=== PATIENT | male | born 1955 | race Caucasian/White ===

== ENCOUNTER → 2017-10-09 10:43 | Outpatient (POV) | payer BC, SELFPAY | PROVIDERS: Family Provider Family Medicine; Visit Provider Dermatology | DX: Z00.00 Encounter for general adult medical examination without abnormal findings (principal) ==

== ENCOUNTER 2018-07-15 14:34 | Observation (INO) ==
--- NOTE | 2018-07-15 14:48 | Emergency Department Note ---
ED Disposition Clinical Impression: Acute appendicitis Qualifiers: Acute appendicitis type: with localized peritonitis Appendicitis gangrene presence: without gangrene Appendicitis perforation presence: without perforation Appendicitis abscess presence: without abscess Qualified Code(s): K35.30 - Acute appendicitis with localized peritonitis, without perforation or gangrene Disposition: Still a Patient Condition on Discharge: Good Referrals: Cathleen Campos MD [Primary Care Provider] - - Critical Care Critical Care Time: No Attestation: On 07/15/18, the high probability of a clinically significant, sudden or life threatening deterioration of the following system(s) required my full and direct attention, intervention and personal management. The time I documented below is in addition to time spent performing reported procedures but includes the following listed in this critical care notation. Medical Decision Making - Robert Inquiry Pt receiving controlled substance: No Vital Signs: 07/15/18 14:38 07/15/18 14:51 07/15/18 16:01 Temperature 98.7 F 98.7 F Temperature Source Oral Oral Pulse Rate [Right Brachial] 86 86 72 Respiratory Rate 18 18 Blood Pressure [Right Arm] 114/71 114/71 135/71 Blood Pressure Mean [Right Arm] 85 85 92 Blood Pressure Source [Right Arm] Automatic Cuff Automatic Cuff Automatic Cuff Blood Pressure Position [Right Arm] Sitting Sitting Sitting 02 Sat by Pulse Oximetry 98 98 98 Oxygen Delivery Method Room Air Room Air Room Air - Lab Data Lab Results 07/15/18 14:50: WBC 14.6 H, RBC 5.05, Hgb 16.5, Hct 47.9, MCV 94.8 H, MCH 32.6 H , MCHC 34.4, RDW 13.0, Plt Count 294, MPV 7.1 L, Neut % (Auto) 86.4 H, Lymph % (Auto) 7.7 L, [place] % (Auto) 3.5, Eos % (Auto) 2.1, Baso % (Auto) 0.3, Neut # (Auto) 12.6 H, Lymph # (Auto) 1.1, [place] # (Auto) 0.5, Eos # (Auto) 0.3, Baso # (Auto) 0.0, Total Counted 100, Neutrophils % (Manual) 91 H, Lymphocytes % (Manual) 6 L, Monocytes % (Manual) 3, Platelet Estimate Normal 07/15/18 14:50: Sodium 137, Potassium 4.0, Chloride 98, Carbon Dioxide 29, Anion Gap 14.0, BUN 16, Creatinine 1.19, Estimated Creat Clear 103, Estimated GFR 61, Est GFR ( Amer) 74, Glucose 97, Calcium 10.1, Total Bilirubin 0.7, AST 25, ALT 30, Alkaline Phosphatase 88, Total Protein 8.6 H, Albumin 4.3, Globulin 4.3 H, Albumin/Globulin Ratio 1.0 L, Lipase 120 07/15/18 16:35: Urine Color Yellow, Urine Appearance Sl cloudy, Urine pH 6.0, Ur Specific [place] 1.010, Urine Protein Negative, Urine Glucose (UA) Negative, Urine Ketones Negative, Urine Blood Negative, Urine Nitrate Negative, Urine Bilirubin Negative, Urine Urobilinogen 0.2, Ur Leukocyte Esterase Negative, Urine RBC None, Urine WBC Occasional, Ur Squamous Epith Cells Occasional, Urine Bacteria Trace Result diagrams: 07/15/18 14:50 07/15/18 14:50 Orders (Tests/Meds): ED MEDICATIONS Generic Name Dose Route Start Last Admin Trade Name Bertha PRN Reason Stop Dose Admin Sodium Chloride 10 ml 07/15/18 15:48 07/15/18 15:51 Rad-Saline Flush 10ml Syringe IV 08/14/18 15:47 10 ml NEEDED PRN Administration Maintain IV Site Discontinued Medications Generic Name Dose Route Start Last Admin Trade Name Freq PRN Reason Stop Dose Admin Iopamidol 75 ml 07/15/18 15:48 07/15/18 15:51 [id number]; 75ml Vial IV 07/15/18 15:49 75 ml ONCE ONE Administration Protocol Sodium Chloride 1,000 ml 07/15/18 14:59 07/15/18 15:35 Sod Chlor 0.9% 1000ml Bag IV 07/15/18 15:00 1,000 ml BOLUS ONE Administration ORDERS Category Date Time Status UA [Urinalysis and Microscopic] Stat Lab 07/15/18 16:35 Ordered - CT Data CT Scan: Abdomen, Pelvis Time Received: 16:[address] Reviewed: Yes: I discussed the CT results w/the radiologist Findings Narrative: Acute appendicitis without perforation or abscess - ECG Data Tracing #1 EKG interpreted by Osvaldo Mccarthy MD: Rhythm: Ventricular paced rhythm Rate: 73 No evidence of acute ischemia or injury - Physician Consults Physician Consulted: Allran Time: 16:35 Reason -: Surgical Eval/Care Comment/Response: Have supervisor feed house call in OR crew and he will come in to see the patient General Adult HPI - General Chief complaint: Abdominal Pain Stated complaint: stomach pain Time Seen by Provider: 07/15/18 14:47 Mode of Arrival: Wheelchair Limitations: No Limitations Description of Symptoms (Recalled from ER Triage Doc. by RN): Pt c/o RLQ pain that began approx 0530 this morning. Pt describes pain as a dull ache that worsens when pressure is applied to area. Pt denies n/v/d, fever or urinary symptoms - History of Present Illness HPI narrative: Right lower quadrant pain since about 5 AM. Mild constipation. Otherwise no symptoms, no vomiting or diarrhea, no urinary symptoms, no fever. Seen by his primary care provider, Dr. campos, and suspected to have appendicitis. She sent in here for imaging, she has notified Dr. Steel of possible appendicitis. The patient has had no prior abdominal surgeries. - Related Data Home Medications Medication Instructions Recorded Confirmed lisinopril 20 mg tablet 20 mg PO ONCE 10/17/17 07/15/18 temazepam 30 mg capsule 30 mg PO QHS 10/17/17 07/15/18 triamterene 37.5 1 tab PO QAM 10/17/17 07/15/18 mg-hydrochlorothiazide 25 mg tablet minocycline 100 mg capsule 100 mg PO BID cap 11/06/17 07/15/18 Allergies Allergy/AdvReac Type Severity Reaction Status Date / Time No Known Allergies Allergy Verified 07/15/18 14:47 [facility] History I have reviewed the patient's past medical history: Yes Medical History: Reports:: Hypertension, Internal Pacemaker Denies:: Diabetes Mellitus Type 1, Diabetes Mellitus Type 2 Other Surgeries: Yes: Colonoscopy, Pacemaker Amputation: Yes (2 toes) - Social History Smoking Status: Never smoker Tobacco Type: smokeless tobacco Alcohol Intake: never Alcohol Intake Frequency:: holidays/special occasions only - Psychiatric History Expresses thoughts of harming self/others: None Suicide Plan Description: No Plan Family Hx:: Cancer ROS Obtained: Yes All systems reviewed & no additional complaints - Constitutional Constitutional: Denies fever(s) - Cardiovascular Cardiovascular: Denies chest pain - Gastrointestinal Gastrointestingal: Reports: abdominal pain, constipation. Denies: diarrhea, nausea, vomiting - Genitourinary Male Genitourinary: Denies difficulty urinating, Denies flank pain - Musculoskeletal Musculoskeletal: Denies back pain Physical Exam - General General appearance: alert, in no apparent distress - Head Head exam: atraumatic, normocephalic, normal inspection - Eye Eye exam: Present: normal appearance, PERRL, EOMI - ENT ENT exam: Present: mucous membranes moist - Neck Neck exam: Present: normal inspection, trachea midline - Chest Chest inspection: Present: normal inspection, symmetric chest wall rise - Respiratory Respiratory exam: Present: normal lung sounds bilaterally. Absent: respiratory distress - Cardiovascular Cardiovascular exam: Present: regular rate, normal rhythm. Absent: JVD - Abdominal Exam Abdominal exam: Present: soft, tenderness, guarding, normal bowel sounds, t enderness at [place]. Absent: distention Abdominal tenderness: Present: RLQ - Extremities Exam Extremities exam: Present: normal inspection - Neurological Exam Neurological exam: Present: alert - Psychiatric Psychiatric exam: Present: normal affect, normal mood - Skin Skin exam: Present: warm, dry, intact, normal color
[2018-07-15 15:02] LABS: Basophils % 0.3 % (0.1-2.0); Eosinophils # 0.3 K/mm3 (0.0-0.4); Eosinophils % 2.1 % (0.1-12.0); Hematocrit 47.9 % (42.0-52.0); Hemoglobin 16.5 g/dL (14.1-18.0); Lymphocytes # 1.1 K/mm3 (0.7-4.5); Lymphocytes % 7.7 % (10-50); Mean Corpuscular HGB Conc 34.4 g/dL (31.8-35.4); Mean Corpuscular Hemoglobin 32.6 pg (27.0-31.2); Mean Corpuscular Volume 94.8 fl (80-94); Mean Platelet Volume 7.1 fl (7.4-10.4); Monocytes # 0.5 K/mm3 (0.1-1.0); Monocytes % 3.5 % (1.7-9.3); Neutrophils # 12.6 K/mm3 (1.8-7.8); Neutrophils % 86.4 % (37.0-80.0); Platelet Count 294 K/mm3 (142-424); Red Blood Count 5.05 M/mm3 (4.60-6.20); White Blood Count 14.6 K/mm3 (4.8-10.8)
[2018-07-15 15:15] LABS: Albumin Level 4.3 gm/dL (3.4-5.0); Bilirubin,Total 0.7 mg/dL (0.2-1.0); Calcium 10.1 mg/dL (8.5-10.1); Globulin 4.3 gm/dl (1.3-3.2); Total Protein,Serum 8.6 gm/dL (6.4-8.2)
[2018-07-15 15:48] LABS: Lymphocytes % 6 % (10-50); Monocytes % 3 % (2-9); Neutrophils % 91 % (42-76); Total Cells Counted 100
[2018-07-15 16:42] LABS: Microscopic, Urine URINE MICROSCOPIC (MICROSCOPIC)
[2018-07-15 16:44] LABS: Appearance,Urine SL CLOUDY (Clear); Bilirubin,Urine Negative (Negative); Blood, Urine Negative (Negative); Color,Urine YELLOW (Yellow); Glucose,Urine (UA) Negative (Negative); Ketones,Urine Negative (Negative); Leukocyte Esterase,Urine Negative (Negative); Protein,Urine Negative (Negative); Urobilinogen,Urine 0.2 EU/dl (0.2)
[2018-07-15 16:57] LABS: Squamous Epithelial Cell,Urine Occasional #/hpf (0-5); WBC,Urine Occasional #/hpf (0-3)
[2018-07-15 16:58] LABS: Bacteria,Urine Trace /lpf
--- NOTE | 2018-07-15 17:23 | History & Physical Report ---
HPI HPI: Abdominal pain Patient is a 63-year-old white male. Apparently he awoke this morning approximately 5:30 AM with sudden onset of significant pain and tenderness in the right lower quadrant. He was seen and evaluated in his primary care provider's office. Appendicitis was suspected. He was sent to the emergency department where he was found to have a leukocytosis. CT scan revealed findings of acute appendicitis and surgical consultation was obtained. [facility] History Medical History: Reports:: Hypertension, Internal Pacemaker Denies:: Diabetes Mellitus Type 1, Diabetes Mellitus Type 2, Seizures Other Medical History: Denies: Blood Transfusion Reaction Other Surgeries: Yes: Colonoscopy, Pacemaker Amputation: Yes (2 toes) - *Social History Smoking Status: Never smoker Tobacco Type: smokeless tobacco Alcohol Intake: never Alcohol Intake Frequency:: holidays/special occasions only - Psychiatric History Expresses thoughts of harming self/others: None Suicide Plan Description: No Plan *Family Hx:: Cancer Review of Systems - Review of Systems Review of systems:: pertinent systems reviewed and negative unless documented below - Constitutional Reports anorexia - Eyes Denies blind spots - ENT Denies abnormal hearing - *Cardiovascular Denies chest pain - *Respiratory Denies shortness of breath - *Gastrointestinal Reports abdominal pain - *Genitourinary Denies difficulty urinating Meds Home Medications Medication Instructions Recorded Confirmed Type lisinopril 20 mg tablet 20 mg PO ONCE 10/17/17 07/15/18 History temazepam 30 mg capsule 30 mg PO QHS 10/17/17 07/15/18 History triamterene 37.5 1 tab PO QAM 10/17/17 07/15/18 History mg-hydrochlorothiazide 25 mg tablet minocycline 100 mg capsule 100 mg PO BID cap 11/06/17 07/15/18 History Allergies Allergy/AdvReac Type Severity Reaction Status Date / Time No Known Allergies Allergy Verified 07/15/18 14:47 Exam Vital signs and Labs for Last 24 Hours: Temp Pulse Resp BP Pulse Ox 98.7 F 72 18 135/71 98 07/15/18 14:51 07/15/18 16:01 07/15/18 16:01 07/15/18 16:01 07/15/18 16:01 Laboratory Results - last 24 hr 07/15/18 14:50: WBC 14.6 H, RBC 5.05, Hgb 16.5, Hct 47.9, MCV 94.8 H, MCH 32.6 H , MCHC 34.4, RDW 13.0, Plt Count 294, MPV 7.1 L, Neut % (Auto) 86.4 H, Lymph % (Auto) 7.7 L, [place] % (Auto) 3.5, Eos % (Auto) 2.1, Baso % (Auto) 0.3, Neut # (Auto) 12.6 H, Lymph # (Auto) 1.1, [place] # (Auto) 0.5, Eos # (Auto) 0.3, Baso # (Auto) 0.0, Total Counted 100, Neutrophils % (Manual) 91 H, Lymphocytes % (Manual) 6 L, Monocytes % (Manual) 3, Platelet Estimate Normal 07/15/18 14:50: Sodium 137, Potassium 4.0, Chloride 98, Carbon Dioxide 29, Anion Gap 14.0, BUN 16, Creatinine 1.19, Estimated Creat Clear 103, Estimated GFR 61, Est GFR ( Amer) 74, Glucose 97, Calcium 10.1, Total Bilirubin 0.7, AST 25, ALT 30, Alkaline Phosphatase 88, Total Protein 8.6 H, Albumin 4.3, Globulin 4.3 H, Albumin/Globulin Ratio 1.0 L, Lipase 120 07/15/18 16:35: Urine Color Yellow, Urine Appearance Sl cloudy, Urine pH 6.0, Ur Specific [place] 1.010, Urine Protein Negative, Urine Glucose (UA) Negative, Urine Ketones Negative, Urine Blood Negative, Urine Nitrate Negative, Urine Bilirubin Negative, Urine Urobilinogen 0.2, Ur Leukocyte Esterase Negative, Urine RBC None, Urine WBC Occasional, Ur Squamous Epith Cells Occasional, Urine Bacteria Trace I & O for Last 24 hours: Intake & Output 07/13/18 07/14/18 07/15/18 07/16/18 11:59 11:59 11:59 11:59 Weight 260 lb - Constitutional no acute distress - *Routine HEENT Exam Head: Present: normocephalic - *Routine Respiratory Exam Present: CTA bilaterally - *Routine Cardiovascular Exam Present: RRR - *Routine Abdominal Exam Present: soft, tenderness, rebound, guarding Comments: Patient's abdomen is soft. He has tenderness with focal guarding in the right lower quadrant. Results - Results Lab Results Last 24 Hours:: Laboratory Results - last 24 hr 07/15/18 14:50: WBC 14.6 H, RBC 5.05, Hgb 16.5, Hct 47.9, MCV 94.8 H, MCH 32.6 H , MCHC 34.4, RDW 13.0, Plt Count 294, MPV 7.1 L, Neut % (Auto) 86.4 H, Lymph % (Auto) 7.7 L, [place] % (Auto) 3.5, Eos % (Auto) 2.1, Baso % (Auto) 0.3, Neut # (Auto) 12.6 H, Lymph # (Auto) 1.1, [place] # (Auto) 0.5, Eos # (Auto) 0.3, Baso # (Auto) 0.0, Total Counted 100, Neutrophils % (Manual) 91 H, Lymphocytes % (Manual) 6 L, Monocytes % (Manual) 3, Platelet Estimate Normal 07/15/18 14:50: Sodium 137, Potassium 4.0, Chloride 98, Carbon Dioxide 29, Anion Gap 14.0, BUN 16, Creatinine 1.19, Estimated Creat Clear 103, Estimated GFR 61, Est GFR ( Amer) 74, Glucose 97, Calcium 10.1, Total Bilirubin 0.7, AST 25 , ALT 30, Alkaline Phosphatase 88, Total Protein 8.6 H, Albumin 4.3, Globulin 4.3 H, Albumin/Globulin Ratio 1.0 L, Lipase 120 07/15/18 16:35: Urine Color Yellow, Urine Appearance Sl cloudy, Urine pH 6.0, Ur Specific [place] 1.010, Urine Protein Negative, Urine Glucose (UA) Negative, Urine Ketones Negative, Urine Blood Negative, Urine Nitrate Negative, Urine Bilirubin Negative, Urine Urobilinogen 0.2, Ur Leukocyte Esterase Negative, Urine RBC None, Urine WBC Occasional, Ur Squamous Epith Cells Occasional, Urine Bacteria Trace Assessment and Plan - Assessment and plan all Dx Assessment and Plan for all problems:: Plan will be for laparoscopic with possibly open appendectomy with planned admission. I explained the details of the procedure along with the associated risks. He understands and agrees to proceed.
--- NOTE | 2018-07-15 18:56 | Operative Note ---
Date of procedure: 07/15/18 Pre-op Diagnosis:: Acute appendicitis Post-op Diagnosis:: Same Procedure performed:: Laparoscopic appendectomy Surgeon:: David Steel MD SOIL CONSERVATION TEACHER:: Lorenzo Kenyon Anesthesia: HENRY Estimated blood loss (mL): 20 Clinical Note:: Patient is a 63-year-old white male. He had reportedly developed abdominal pain localized to the right lower quadrant early this morning which awoke him from sleep. It was quite severe. He presented to his primary care provider's office and appendicitis was suspected. He was sent to the emergency department where he underwent workup which revealed a leukocytosis and CT scan revealing findings of acute appendicitis. Surgical consultation was obtained and arrangements were made for appendectomy. Operative findings:: He had a significantly inflamed suppurative appendicitis. He did have some significant fatty infiltration of the liver. Operative note:: Consent was obtained and patient was taken to the operating room. He was positioned in a supine position. General anesthesia was induced via endotracheal tube. His abdomen was prepped and draped in the standard surgical fashion. Please note that he had a Vazquez catheter placed for bladder decompression. Subumbilical skin incision was made and while performing abdominal wall lift Veress needle was inserted. CO2 pneumoperitoneum was achieved 15 mmHg. A 12 mm optical trocar was inserted at the umbilicus. Intraperitoneal contents were visualized. There was some turbid fluid in the right lower quadrant. He was positioned in left side down. 5 mm trocar was inserted in the suprapubic location. 5 mm trocar was inserted in the right upper abdomen. 30 degree 5 mm laparoscope was inserted through the right upper abdominal trocar site. The appendix was identified and found to be markedly inflamed and suppurative. There was thick purulent exudate on the appendix. It was somewhat adherent to the ileum and also to the right lateral sidewall. Peritoneal attachments laterally were incised with Brett ultrasonic harmonic sharyn. Appendix was grasped and retracted anteriorly. Mesoappendix was divided with Brett ultrasonic harmonic sharyn with care taken to coagulate the appendiceal artery in the process. Appendix was dissected down to its base where it was divided with a PATRIZIA linear cutting stapling device. Appendix was placed within an Endo Catch retrieval device and removed from the peritoneal cavity via the umbilical trocar site. Limited irrigation was performed of the pericecal region, pelvis, and perihepatic region. There was good hemostasis. Trochars were removed as CO2 pneumoperitoneum was evacuated. Fascia at the umbilicus was closed with a 0 Vicryl [id number] suture. Local anesthetic was infiltrated. Skin incisions were closed with 4-0 Monocryl in a subcuticular fashion. Steri-strips and dressings were applied. Condition: stable Disposition: PACU Specimens:: Appendix Complications:: None immediately apparent
--- NOTE | 2018-07-15 19:06 | Progress Note ---
[facility] Anesthesia Checklist - Patient Identification Patient Identification: Arm Band, Verbal (Name & ) - Structural Data Admitted From: Emergency Dept Planned Operative Procedure/s: lap appy - NPO Status Verified Time NPO: 00:00 - Additional verifications Patient : No Anesthesia Reactions: No Hx Blood Transfusions: No Blood Transfusion Reaction: No Cephalosporin Allergy: No Previous Colonoscopy: Yes - Cardiovascular Assessment Heart Sounds: S1 & S2 Pulse Strength: Baseline Pulse Rhythm: Regular Peripheral Edema: No - Airway Assessment C-Spine Mobility Assessed: Yes TMJ Mobility Assessed: Yes Dentition: Good Dentition - Neurological Assessment Level of Consciousness: Awake, Alert, Appropriate Hx Seizures: No Numbness or tingling in extremities: No - Anesthesia Plan Anesthesia Risk discussed: Yes ASA Class: III Anesthesia Type: General [facility] History I have reviewed the patient's past medical history: Yes Medical History: Reports:: Hypertension, Internal Pacemaker Denies:: Diabetes Mellitus Type 1, Diabetes Mellitus Type 2, Seizures Other Medical History: Denies: Blood Transfusion Reaction Other Surgeries: Yes: Colonoscopy, Pacemaker Amputation: Yes (2 toes) - *Social History Smoking Status: Never smoker Tobacco Type: smokeless tobacco Alcohol Intake: never Alcohol Intake Frequency:: holidays/special occasions only - Psychiatric History Expresses thoughts of harming self/others: None Suicide Plan Description: No Plan *Family Hx:: Cancer
--- NOTE | 2018-07-15 19:08 | Progress Note ---
[facility] Anesthesia Record Part II Discharge Time: 19:33 Destination: Medical Surgical Department PACU nurse assessment reviewed?: Yes Patient Condition:: Good Anesthesia Complications:: None
--- NOTE | 2018-07-15 19:08 | Progress Note ---
[facility] Anesthesia Record Part I Intake, IV Amount: 1,000 Estimated blood loss (mL): 10 Urine output (mL): 300 Blood Products used (#): none Blood Pressure: 135/70 SaO2: 95 Pulse Rate: 75 Respiratory Rate: 20 Temperature: 98.1 F Patient is:: Awake, Stable Stable to PACU at:: 19:03
[2018-07-16 06:21] LABS: Basophils % 0.1 % (0.1-2.0)
[2018-07-16 06:28] LABS: Eosinophils % 0.2 % (0.1-12.0); Hematocrit 39.4 % (42.0-52.0); Lymphocytes # 0.9 K/mm3 (0.7-4.5); Lymphocytes % 8.6 % (10-50); Mean Corpuscular HGB Conc 33.9 g/dL (31.8-35.4); Mean Corpuscular Hemoglobin 32.4 pg (27.0-31.2); Mean Corpuscular Volume 95.4 fl (80-94); Mean Platelet Volume 7.1 fl (7.4-10.4); Monocytes # 0.5 K/mm3 (0.1-1.0); Monocytes % 4.5 % (1.7-9.3); Neutrophils # 9.2 K/mm3 (1.8-7.8); Neutrophils % 86.6 % (37.0-80.0); Platelet Count 247 K/mm3 (142-424); Red Blood Count 4.13 M/mm3 (4.60-6.20); Red Cell Distribution Width 13.1 % (11.5-17.5); White Blood Count 10.6 K/mm3 (4.8-10.8)
[2018-07-16 06:31] LABS: Hemoglobin 13.4 g/dL (14.1-18.0)
--- NOTE | 2018-07-16 07:54 | Pharmacy Consult Notes ---
[facility] Pharmacy VTE Monitoring - Patient Demographics Admission date: 07/16/18 Report Date: 07/16/18 Time: 07:53 Allergies/Adverse Reactions: Patient Allergies No Known Allergies Allergy (Verified 07/15/18 14:47) Height: 1.88 m Weight: 117.112 kg Patient Problems: Current Active Problems Acute appendicitis (Acute) - VTE Risk Labs: VTE Related Lab Results Hgb 13.4 g/dL (14.1-18.0) L D 07/16/18 06:02 Hct 39.4 % (42.0-52.0) L 07/16/18 06:02 Plt Count 247 K/mm3 (142-424) 07/16/18 06:02 BUN 16 mg/dL (7-18) 07/15/18 14:50 Creatinine 1.19 mg/dL (0.70-1.30) 07/15/18 14:50 Estimated Creat Clear 103 mL/min (0-300) 07/15/18 14:50 Was VTE Risk Assessment Performed: No VTE Score: 3 VTE Risk Level: Low Risk Clinical Trial Participant: No - Prophylaxis VTE Prophylaxis Ordered?: Yes Types of VTE Prophylaxis: TEDS Knee High Location of Applied Device: Bilateral Lower Extremeties
--- NOTE | 2018-07-16 07:56 | Progress Note ---
Subjective Patient reports: feels better Narrative: Tolerating full liquid diet. Exam Vital signs and Labs for Last 24 Hours: Temp Pulse Resp BP Pulse Ox 98.5 F 70 16 119/64 96 07/16/18 02:20 07/16/18 04:00 07/16/18 02:20 07/16/18 02:20 07/16/18 02:20 Laboratory Results - last 24 hr 07/15/18 14:50: WBC 14.6 H, RBC 5.05, Hgb 16.5, Hct 47.9, MCV 94.8 H, MCH 32.6 H , MCHC 34.4, RDW 13.0, Plt Count 294, MPV 7.1 L, Neut % (Auto) 86.4 H, Lymph % (Auto) 7.7 L, [place] % (Auto) 3.5, Eos % (Auto) 2.1, Baso % (Auto) 0.3, Neut # (Auto) 12.6 H, Lymph # (Auto) 1.1, [place] # (Auto) 0.5, Eos # (Auto) 0.3, Baso # (Auto) 0.0, Total Counted 100, Neutrophils % (Manual) 91 H, Lymphocytes % (Manual) 6 L, Monocytes % (Manual) 3, Platelet Estimate Normal 07/15/18 14:50: Sodium 137, Potassium 4.0, Chloride 98, Carbon Dioxide 29, Anion Gap 14.0, BUN 16, Creatinine 1.19, Estimated Creat Clear 103, Estimated GFR 61, Est GFR ( Amer) 74, Glucose 97, Calcium 10.1, Total Bilirubin 0.7, AST 25, ALT 30, Alkaline Phosphatase 88, Total Protein 8.6 H, Albumin 4.3, Globulin 4.3 H, Albumin/Globulin Ratio 1.0 L, Lipase 120 07/15/18 16:35: Urine Color Yellow, Urine Appearance Sl cloudy, Urine pH 6.0, Ur Specific [place] 1.010, Urine Protein Negative, Urine Glucose (UA) Negative, Urine Ketones Negative, Urine Blood Negative, Urine Nitrate Negative, Urine Bilirubin Negative, Urine Urobilinogen 0.2, Ur Leukocyte Esterase Negative, Urine RBC None, Urine WBC Occasional, Ur Squamous Epith Cells Occasional, Urine Bacteria Trace 07/15/18 17:55: Urine Color Yellow, Urine Appearance Clear, Urine pH 5.5, Ur Specific [place] 1.015, Urine Protein Negative, Urine Glucose (UA) Negative, Urine Ketones Negative, Urine Blood Negative, Urine Nitrate Negative, Urine Bilirubin Negative, Urine Urobilinogen 0.2, Ur Leukocyte Esterase Negative, Urine WBC Occasional, Urine Bacteria Trace 07/16/18 06:02: WBC 10.6 D, RBC 4.13 L, Hgb 13.4 L D, Hct 39.4 L, MCV 95.4 H, MCH 32.4 H, MCHC 33.9, RDW 13.1, Plt Count 247, MPV 7.1 L, Neut % (Auto) 86.6 H, Lymph % (Auto) 8.6 L, [place] % (Auto) 4.5, Eos % (Auto) 0.2, Baso % (Auto) 0.1, Neut # (Auto) 9.2 H, Lymph # (Auto) 0.9, [place] # (Auto) 0.5, Eos # (Auto) 0.0, Baso # (Auto) 0.0 I & O for Last 24 hours: Intake & Output 07/13/18 07/14/18 07/15/18 07/16/18 11:59 11:59 11:59 11:59 Intake Total 2518 / 2518 Output Total 1150 / 1150 Balance 1368 / 1368 Weight 258 lb 3 oz - Constitutional no acute distress - *Routine Abdominal Exam Present: soft. Absent: tenderness Progress Note: A&P Assessment and Plan for All Diagnoses:: Plan to discharge home.
--- NOTE | 2018-07-16 08:01 | Discharge Summary ---
General - General Admission date:: 07/15/18 Discharge date: 07/16/18 HPI HPI: Patient is a 63-year-old white male. Apparently he awoke this morning approximately 5:30 AM with sudden onset of significant pain and tenderness in the right lower quadrant. He was seen and evaluated in his primary care provider's office. Appendicitis was suspected. He was sent to the emergency department where he was found to have a leukocytosis. CT scan revealed findings of acute appendicitis and surgical consultation was obtained. Hospital Course Hospital Course: Patient was taken to the operating room at which time he underwent successful laparoscopic appendectomy. He was found to have an acutely inflamed suppurative appendicitis without perforation. Please see operative dictation for complete details. Patient was continued on perioperative Zosyn overnight. He was given a full liquid diet. Following morning he was tolerating this without difficulty. His white blood cell count had normalized. He felt quite well and much better. He remained afebrile. Arrangements were made for discharge home on postoperative day #1. Objective Vital signs: Temp Pulse Resp BP Pulse Ox 98.5 F 70 16 119/64 96 07/16/18 02:20 07/16/18 04:00 07/16/18 02:20 07/16/18 02:20 07/16/18 02:20 Results Labs on day of discharge: Labs from last 24 hours 07/16/18 07/15/18 07/15/18 06:02 17:55 16:35 WBC 10.6 D RBC 4.13 L Hgb 13.4 L D Hct 39.4 L MCV 95.4 H MCH 32.4 H MCHC 33.9 RDW 13.1 Plt Count 247 MPV 7.1 L Neut % (Auto) 86.6 H Lymph % (Auto) 8.6 L [place] % (Auto) 4.5 Eos % (Auto) 0.2 Baso % (Auto) 0.1 Neut # (Auto) 9.2 H Lymph # (Auto) 0.9 Berks # (Auto) 0.5 Eos # (Auto) 0.0 Baso # (Auto) 0.0 Total Counted Neutrophils % (Manual) Lymphocytes % (Manual) Monocytes % (Manual) Platelet Estimate Sodium Potassium Chloride Carbon Dioxide Anion Gap BUN Creatinine Estimated Creat Clear Estimated GFR Est GFR ( Amer) Glucose Calcium Total Bilirubin AST ALT Alkaline Phosphatase Total Protein Albumin Globulin Albumin/Globulin Ratio Lipase Urine Color Yellow Yellow Urine Appearance Clear Sl cloudy Urine pH 5.5 6.0 Ur Specific [place] 1.015 1.010 Urine Protein Negative Negative Urine Glucose (UA) Negative Negative Urine Ketones Negative Negative Urine Blood Negative Negative Urine Nitrate Negative Negative Urine Bilirubin Negative Negative Urine Urobilinogen 0.2 0.2 Ur Leukocyte Esterase Negative Negative Urine RBC None Urine WBC Occasional Occasional Ur Squamous Epith Cells Occasional Urine Bacteria Trace Trace 07/15/18 07/15/18 14:50 14:50 WBC 14.6 H RBC 5.05 Hgb 16.5 Hct 47.9 MCV 94.8 H MCH 32.6 H MCHC 34.4 RDW 13.0 Plt Count 294 MPV 7.1 L Neut % (Auto) 86.4 H Lymph % (Auto) 7.7 L [place] % (Auto) 3.5 Eos % (Auto) 2.1 Baso % (Auto) 0.3 Neut # (Auto) 12.6 H Lymph # (Auto) 1.1 [place] # (Auto) 0.5 Eos # (Auto) 0.3 Baso # (Auto) 0.0 Total Counted 100 Neutrophils % (Manual) 91 H Lymphocytes % (Manual) 6 L Monocytes % (Manual) 3 Platelet Estimate Normal Sodium 137 Potassium 4.0 Chloride 98 Carbon Dioxide 29 Anion Gap 14.0 BUN 16 Creatinine 1.19 Estimated Creat Clear 103 Estimated GFR 61 Est GFR ( Amer) 74 Glucose 97 Calcium 10.1 Total Bilirubin 0.7 AST 25 ALT 30 Alkaline Phosphatase 88 Total Protein 8.6 H Albumin 4.3 Globulin 4.3 H Albumin/Globulin Ratio 1.0 L Lipase 120 Urine Color Urine Appearance Urine pH Ur Specific [place] Urine Protein Urine Glucose (UA) Urine Ketones Urine Blood Urine Nitrate Urine Bilirubin Urine Urobilinogen Ur Leukocyte Esterase Urine RBC Urine WBC Ur Squamous Epith Cells Urine Bacteria Discharge Plan - Patient Discharge Instructions ACTIVITY: No heavy lifting DIET: advance to your usual diet - Follow up Plan Follow up with: Cathleen Hu MD [Primary Care Provider] - David Steel MD [Staff Physician] - 2 weeks Disposition: Home, Self-Group Home Medications: Home Medications Medication Instructions Recorded Confirmed Type lisinopril 20 mg tablet 20 mg PO DAILY 10/17/17 07/16/18 History temazepam 30 mg capsule 30 mg PO HS 10/17/17 07/16/18 History triamterene 37.5 1 tab PO DAILY 10/17/17 07/16/18 History mg-hydrochlorothiazide 25 mg tablet Doxycycline Hyclate [Doxycycline 20 mg PO BID 07/16/18 07/16/18 History 20mg Tablet] Prescriptions/Medication Reconciliation: Continue lisinopril 20 mg tablet 20 mg PO DAILY temazepam 30 mg capsule 30 mg PO HS triamterene 37.5 mg-hydrochlorothiazide 25 mg tablet 1 tab PO DAILY Doxycycline Hyclate [Doxycycline 20mg Tablet] 20 mg PO BID
[2018-07-16 09:08] LABS: Lymphocytes % 11 % (10-50); Monocytes % 2 % (2-9); Neutrophils % 84 % (42-76); Total Cells Counted 100
[2018-07-16 09:09] LABS: RBC Morphology Normal
== END 2018-07-16 08:37 | disposition home or self-care (01) ==
LOC: ER 14:34 → SDC 17:38 → 2ND 17:38
PROVIDERS: ADMIT Surgery; ATTEND Surgery

== ENCOUNTER → 2018-09-29 10:54 | Outpatient (POV) | payer MEDICARE, SELFPAY | PROVIDERS: Visit Provider Dermatology | DX: Z00.00 Encounter for general adult medical examination without abnormal findings (principal) ==

== ENCOUNTER → 2018-11-10 08:49 | Outpatient (POV) | payer MEDICARE, SELFPAY | PROVIDERS: Visit Provider Dermatology | DX: Z00.00 Encounter for general adult medical examination without abnormal findings (principal) ==

== ENCOUNTER → 2018-11-16 12:37 | Outpatient (CLI) | payer MEDICARE, SELFPAY ==
--- NOTE | 2018-11-16 12:41 | CA_ITS ---
PROCEDURE: 2-D M-mode and color Doppler study INDICATIONS FOR THE TEST: Chest pain COPD Heart Murmur Tobacco Smoking+ Palpitations Fatigue Syncope Edema Hypertension+Diabetes Mellitus Rheumatic Fever SOB BOONE Obesity Hyperlipidemia+ Family History HD Additional History PACER PATIENT INFORMATION HEIGHT: 74 WEIGHT:267 GENDER: Male B/P:128/79 2-D/M-MODE INTERPRETATION: 2-D MEASUREMENTS OBSERVED VALUES IN CMS Right Ventricular Dimension (RVDd) 2.5 Interventricular Septum (Thickness)(IVsd) 1.7 Left Ventricular Internal Dimensions(LVIDd) 5.3 Left Ventricular Posterior Wall (Thickness)(LVPWd) 1.2 Aortic Root 3.6 Aortic Cusp Separation 2.1 Left Atrial Dimensions (LAD) 3.9 2D 1. Left atrium is mildly enlarged, left ventricle is normal size, mild concentric left ventricular hypertrophy, visually estimated ejection fraction 55% with no regional wall motion abnormality, there is abnormal septal motion. 2. The right atrium and right ventricle are mildly enlarged with normal contractility. There is pacemaker lead seen right atrium and right ventricle. 3. The aortic valve is thickened and calcified, leaflet continue to display mobility. 4. The mitral valve has mitral annular calcification, there is no mitral stenosis 5. The tricuspid valve is grossly normal. 6. The pulmonic valve is poorly present. 7. No significant pericardial effusion noted. DOPPLER INTERROGATION: Doppler interrogation of the aortic, mitral and tricuspid valvular presence of mild mitral and tricuspid regurgitation, tricuspid regurgitation jet velocity is inadequate for calculation of the right ventricular systolic pressure, grade 1 diastolic dysfunction seen with tissue Doppler evidence of raised left atrial pressure. CONCLUSION: 1. Mildly enlarged left atrium, normal left ventricular size, mild concentric left ventricular hypertrophy, visually estimated ejection fraction 55% with no regional wall motion abnormality, there is abnormal septal motion. Grade 1 diastolic dysfunction seen with tissue Doppler evidence of raised left atrial pressure. 2. Mildly enlarged right ventricle with normal contractility. 3. Mild mitral and tricuspid regurgitation 4. No significant pericardial effusion noted.
== END ==
PROVIDERS: PCP Family Medicine; Visit Provider Internal Medicine
DX: I25.10 Atherosclerotic heart disease of native coronary artery without angina pectoris (principal)
CPT/HCPCS: 93306

== ENCOUNTER → 2018-12-14 13:57 | Outpatient (CLI) | payer MEDICARE, SELFPAY | PROVIDERS: PCP Family Medicine; Visit Provider Nurse Practitioner Family | DX: G47.33 Obstructive sleep apnea (adult) (pediatric); G47.9 Sleep disorder, unspecified; R06.83 Snoring; R40.0 Somnolence | CPT/HCPCS: G0399 ==

== ENCOUNTER → 2019-03-05 10:14 | Outpatient (CLI) | payer MEDICARE, SELFPAY | PROVIDERS: Visit Provider Specialist | DX: G47.33 Obstructive sleep apnea (adult) (pediatric) (principal) | CPT/HCPCS: 94762 ==

== ENCOUNTER → 2021-03-20 09:15 | Outpatient (POV) | payer MEDICARE, SELFPAY | PROVIDERS: Visit Provider Dermatology | DX: Z00.00 Encounter for general adult medical examination without abnormal findings (principal) ==

== ENCOUNTER → 2021-10-02 08:53 | Outpatient (POV) | payer MEDICARE, SELFPAY | PROVIDERS: Visit Provider Dermatology | DX: Z00.00 Encounter for general adult medical examination without abnormal findings (principal) ==

== ENCOUNTER → 2022-04-18 08:41 | Outpatient (CLI) | payer MEDICARE, SELFPAY ==
--- NOTE | 2022-04-18 08:45 | US_ITS ---
FINAL REPORT CLINICAL HISTORY: AAA FINDINGS: Limited sonographic images were obtained of the abdomen to evaluate the abdominal aorta and iliac arteries. The abdominal aorta measures up to 2.1 cm in greatest dimension. The iliac arteries are within normal limits. IMPRESSION: No evidence of abdominal aortic aneurysm. Reviewed, Interpreted and Dictated by David Luna III, MD Transcribed by Sharon Gaitan Authenticated and [facility]
== END ==
PROVIDERS: PCP Family Medicine; Visit Provider Family Medicine
DX: Z13.6 Encounter for screening for cardiovascular disorders (principal)
CPT/HCPCS: 76705

== ENCOUNTER → 2022-10-31 13:14 | Outpatient (CLI) | payer MEDICARE, SELFPAY ==
--- NOTE | 2022-10-31 13:20 | CA_ITS ---
APPROVED REPORT EXAM: Comprehensive 2D, Doppler, and color-flow Echocardiogram Agile Coach: SEGUN White, RVS Ht: 6 ft 2 in Wt: 257lbs BSA: 2.42 BP: 126/68 mmHg Indications: Evaluation of LVF prior to Pacemaker battery replacement, HTN, HLD, Etoh use 2D Dimensions IVSd 1.26 cm LVEF (Visual) 79.80 % PWd 1.18 cm LA Volume 70.70 mL LVDd 4.14 cm LA Volume Index 28.50 mL/m2 (M/F) 16-34 LVDs 2.15 cm Aortic Root 3.43 cm Left Atrium 3.37 cm LVOT 1.99 cm (M/F) 1.5-2.5 M-Mode Dimensions LA Diam 4.04 cm (1.9-4.0) LVDd 4.58 cm (3.5-5.7) Ao Diam 4.04 cm (2.0-3.7) LVDs 2.77 cm (3.5-5.7) EF (Teich) 70.10% EPSs 0.32 cm FS 39.50% EDV (Teich) 96.30 mL TAPSE 2.85 (<1.7) ESV (Teich) 28.80 mL LV Diastology E Decel Time 227.00 (160-240 msec) E/A Ratio 0.75 MED E' 4.90 (< 7 cm/sec) MED A' 16.60 cm/s E'/MED E' Ratio 24.06 (>14) LAT E' 5.30 (<10 cm/sec) LAT A' 14.00 cm/s E/LAT E' Ratio 22.25 (>14) Aortic Valve LVOT Max 119.00 (70-110 cm/s) LVOT VTI 24.09 cm AoV Peak Geronimo. 200.00 (50-130 cm/s) AO Peak GR. 16.00 mmHg AO Mean GR. 9.10 (<5 mmHg) AO VTI 38.28 (18-25 cm) GRACIELA (VTI) 1.96 (2.5-4.5 cm2) Mitral Valve MV A Velocity 158.00 (40-130 cm/s) E/A Ratio 0.75 MV Decel. Time 227.00 (160-240 ms) MV Mean Gr. 4.20 (<2mmHg) MV PHT 67.00 ms Pulmonary Valve PV Peak Velocity 137.00 (50-150 cm/s) Tricuspid Valve TR P. Velocity 171.00 cm/s RAP Estimate 10.00 mmHg RVSP 21.70 mmHg Left Ventricle Left atrium is mildly enlarged, left ventricle is normal size mild concentric left ventricular hypertrophy, estimated ejection fraction 55% with no regional wall motion abnormality, grade 1 diastolic dysfunction seen with tissue Doppler evidence of late left atrial pressure. Right Ventricle Right atrium and right ventricular mildly enlarged with normal contractility, there is pacemaker leads in the right ventricle. Aortic Valve Aortic valve is thickened and calcified without Doppler evidence of aortic stenosis or aortic insufficiency. Mitral Valve Mitral valve has mitral annular calcification which extends in the posterior mitral leaflet, there is no significant mitral stenosis, there is trace mitral regurgitation. Tricuspid Valve Tricuspid valve grossly normal, there is trace tricuspid regurgitation, tricuspid regurgitation (inadequate for calculation of the right ventricular systolic pressure. Pulmonic Valve Pulmonic valve is poorly visualized. Great Vessels Aortic root is normal size. Inferior vena cava is normal size with normal inspiratory collapse. Pericardium No significant pericardial effusion noted. There is anterior echo-free space seen. Conclusion 1. Mild biatrial enlargement, normal left ventricular size, mild concentric left ventricular hypertrophy, estimated ejection fraction 55% with no regional wall motion abnormality, grade 1 diastolic dysfunction seen with tissue Doppler evidence of raise left atrial pressure. 2. Mildly enlarged right ventricle with normal contractility, pacemaker leads in the right atrium and right ventricle. 3. Thickened and calcified aortic valve without Doppler evidence of aortic stenosis or aortic insufficiency. 4. Trace mitral and tricuspid regurgitation. 5. No significant pericardial effusion noted. 6. Inferior vena cava is normal size with normal inspiratory collapse.
== END ==
PROVIDERS: PCP Family Medicine; Visit Provider Nurse Practitioner
DX: I47.1 Supraventricular tachycardia (principal)
CPT/HCPCS: 93306

== ENCOUNTER 2022-11-06 08:57 | Day surgery (SDC) | payer MEDICARE, SELFPAY ==
[2022-11-06] VITALS (7 sets, daily range): BP systolic 93–123; BP diastolic 45–60; PULSE 66–73; RESP 17–18; O2SAT 95–98; BMI 33.0
--- NOTE | 2022-11-06 07:15 | IR_ITS ---
APPROVED REPORT Patient Location: Outpatient Nub Card Tender: MATILDA Jackson RT (R) PROCEDURES 1. Pocket Revision 2. Removal of old Pacemaker 3. Capping of chronic atrial lead 4. Placement of an atrial sensing and pacing coil into the right atrial appendage. 5. Implant of Permanent Pacemaker INDICATION End of battery life Informed consent was obtained prior to the procedure. COMPLICATIONS None Estimated Blood Loss: Less than 10 ML TECHNIQUE 1% lidocaine with epinephrine used to anesthetize the left anterior aspect of the chest. Scalpel was used to make the initial cutaneous incision and then used to dissect down to the existing pacemaker generator. The generator was removed from the existing pocket. Digital manipulation was required along with intermittent usage of scalpel in order to revise the pocket. The leads were removed from the old generator.The chronic right atrial lead was capped. The patient was then placed in Trendelenburg position and the subclavian vein was accessed once via the Selinger technique, there is one wire in the vein. A 6 Filipino sheath was placed under fluoroscopic guidance into the subclavian vein over the wire. The dilator was removed from the sheath. Using fluoroscopic guidance, the atrial lead was the placed into the right atrial appendage and screwed and secured in place. The new generator was screwed to the existing ventricular lead and the new atrial lead and secured into place. Electronic interrogation proved acceptable thresholds and voltage within the lead. Antibiotics were used to flush the pocket and the pacemaker was secured using 3-0 silk into the newly revised pocket. Monocryl was used to close the subcutaneous tissue and then lamar were placed on the cutaneous area in order to approximate the incision. Patient was transferred to the postop holding area in stable condition. INTERROGATION Generator Model number: L311: ACCOLADE MRI DR IS-1 Generator Serial number: [id number] Atrial lead model number: [id number] Atrial lead serial number: [id number] P-wave: 2.5 MV Impedence: 552 OHMS Threshold: 1.4V @ 0.4 MS Right Ventricular lead model number: 2088 TC Right Ventricular lead serial number: [id number] R-wave: 0.0 MV Impedence: 5245 OHMS Threshold: 1.5V @ 0.4 MS Pacing Parameters: Mode: DDDR Base/Max Track:60 ppm / 130 ppm No diaphragmatic stimulation at 10 volts. IMPRESSION 1. Successful Pocket Revision 2. Successful Removal of old Pacemaker 3. Successful Implant of Permanent Pacemaker 4. Succesful Placement of an atrial sensing and pacing coil into the right atrial appendage. 5. Succesful Implant of Permanent Pacemaker PLAN 1. Post Op Wound Care. Electronically signed by : Matt Dunlap MD 11/08/2022 13:39:33
[2022-11-06 09:42] LABS: Basophils # 0.1 K/mm3 (0-0.2); Eosinophils # 0.4 K/mm3 (0.0-0.4); Eosinophils % 5.7 % (0.1-12.0); Hematocrit 45.1 % (42.0-52.0); Lymphocytes # 1.3 K/mm3 (0.7-4.5); Lymphocytes % 17.1 % (10-50); Mean Corpuscular HGB Conc 33.4 g/dL (31.8-35.4); Mean Corpuscular Hemoglobin 32.2 pg (27.0-31.2); Mean Corpuscular Volume 96.6 fl (80-94); Mean Platelet Volume 8.3 fl (7.4-10.4); Monocytes # 0.4 K/mm3 (0.1-1.0); Monocytes % 5.2 % (1.7-9.3); Neutrophils # 5.3 K/mm3 (1.8-7.8); Platelet Count 421 K/mm3 (142-424); Red Blood Count 4.66 M/mm3 (4.60-6.20); Red Cell Distribution Width 13.1 % (11.5-17.5); White Blood Count 7.4 K/mm3 (4.8-10.8)
[2022-11-06 10:22] LABS: Anion Gap 16.5 mEq/L (5-15); Blood Urea Nitrogen 25 mg/dl (9-20); Calcium 9.7 mg/dl (8.4-10.2); Carbon Dioxide 17 mmol/L (22.0-30.0); Chloride 108 mmol/L (98-107); Creatinine Clearance Estimated 82 mL/min (50-200); Estimated Glomerular Filt Rate 50 ml/min (>60); GFR (African American) 61 ML/MIN (>60); Glucose 103 mg/dl (74-100); Sodium 135 mmol/L (136-145)
[2022-11-06 10:41] LABS: Potassium 6.5 mmoL/L (3.5-5.1)
--- NOTE | 2022-11-06 12:46 | XR_ITS ---
FINAL REPORT CLINICAL HISTORY: post lead insertion FINDINGS: A single PA view of the chest was obtained. There is no prior exam for comparison. A left subclavian pacemaker is present. The cardiac and mediastinal silhouettes are within normal limits. There are mildly increased interstitial markings which could be chronic but mild edema is not excluded. There is no effusion or pneumothorax. No acute osseous abnormality is identified. There are surgical skin lamar overlying the left upper chest. IMPRESSION: Mildly increased interstitial markings could be chronic but mild edema is not excluded. Reviewed, Interpreted and Dictated by Juanis Hoyos MD Transcribed by Sharon Gaitan Authenticated and [facility]
[2022-11-06 13:15] LABS: Chloride 106 mmol/L (98-107); Sodium 141 mmol/L (136-145)
[2022-11-06 13:18] LABS: Blood Urea Nitrogen 24 mg/dl (9-20); Calcium 9.4 mg/dl (8.4-10.2); Carbon Dioxide 27 mmol/L (22.0-30.0); Creatinine Clearance Estimated 77 mL/min (50-200); Estimated Glomerular Filt Rate 46 ml/min (>60); GFR (African American) 56 ML/MIN (>60); Glucose 114 mg/dl (74-100)
== END 2022-11-06 14:15 | disposition home or self-care (01) ==
PROVIDERS: PCP Family Medicine; Visit Provider Internal Medicine
DX: T82.191A Other mechanical complication of cardiac pulse generator (battery), initial encounter (principal); I45.89 Other specified conduction disorders; Z45.02 Encounter for adjustment and management of automatic implantable cardiac defibrillator; Z79.899 Other long term (current) drug therapy; I25.10 Atherosclerotic heart disease of native coronary artery without angina pectoris; G47.33 Obstructive sleep apnea (adult) (pediatric); I47.1 Supraventricular tachycardia; I10 Essential (primary) hypertension
CPT/HCPCS: 33228; 71045; 80048; 85025; 99152; 99153; C1785; C1898

== ENCOUNTER 2024-11-11 13:39 | Emergency (ER) | payer MEDICARE, SELFPAY ==
[2024-11-11] VITALS (8 sets, daily range): BP systolic 130–184; BP diastolic 78–99; PULSE 59–70; RESP 18–20; TEMP 36.8–37.1; O2SAT 95–99; BMI 32.7
--- NOTE | 2024-11-11 14:00 | PC.NURSE ---
1400 pt brought back to RM 10 from triage. pt c/o mid-L abd pain. pt states his pain is 10/10, constant and sharp in nature. pt states this has been ongoing x4d but has worsened over the last 2. pt states he has not had a BM in 4d and is constipated. pt has tried miralax and senna without any relief. pt states he struggles chronically with constipation.
--- NOTE | 2024-11-11 14:01 | CT_ITS ---
FINAL REPORT TECHNIQUE: IV contrast enhanced exam This study was performed with techniques to keep radiation doses as low as reasonably achievable, (ALARA). Individualized dose reduction techniques using automated exposure control or adjustment of mA and/or kV according to the patient''s size were employed. CLINICAL HISTORY: Left-sided ABD pain no BM in 4 days FINDINGS: Abdomen: There are reticular nodular densities within the right lower lobe suggesting bronchiolitis although noninfectious etiology including neoplasm could have a similar appearance. Tiny right effusion is identified. There is a left adrenal nodule which is nonspecific. There is a 9 mm right adrenal nodule. There is fatty infiltration of the liver. The gallbladder is normal. Spleen and pancreas are unremarkable. There are borderline enlarged lymph nodes along the upper celiac axis best seen on image 29 of series 3. There is mild right hydronephrosis and proximal hydroureter. Obstruction is secondary to a mid right ureteral stone measuring 6 mm. There is a more proximal nonobstructing stone measuring 2 mm. There is also mild left hydronephrosis secondary to a left UVJ stone measuring 4 mm. No bowel is unremarkable. There is no free air. No fluid collection is seen. Pelvis: The appendix is normal. There is a 4 mm left UVJ stone seen on image 102 of series 3. Mild thickening of the bladder wall in this region could be edema or neoplasm. There is moderate prostate enlargement. There is no free fluid. No pelvic adenopathy. IMPRESSION: 1. Bilateral upper urinary tract obstruction secondary to stone disease as above. 2. Bladder wall thickening near the left UVJ which could be edema from obstruction although neoplasm is not excluded. 3. Fine nodular densities in the right lung base, favor infectious. Recommend chest CT follow-up in 2 to 3 months. 4. Nonspecific bilateral adrenal nodules. Reviewed, Interpreted and Dictated by Josee Whitaker MD Transcribed by Doreen Byrnes Authenticated and . [facility]
[2024-11-11 14:03] LABS: Coronavirus 19, PCR Not Detected (NotDetected); Influenza A, PCR Not Detected (NotDetected); Influenza B, PCR Not Detected (NotDetected); Microscopic, Urine URINE MICROSCOPIC (MICROSCOPIC)
--- NOTE | 2024-11-11 14:04 | ED_ITS ---
<Statement entered by Jonathan Crain MD - 11/13/24 08:20> I was consulted by the SAMM, and we discussed the complexity of the problems being addressed. I approved the treatment and management plan for this patient's care in the emergency department, thus performing a substantive portion of the medical decision making. Jonathan Crain MD, SLICK, FACEP Discharge Plan Disposition Chief Complaint: Abdominal Pain Prescriptions Prescriptions: No Action temazepam 15 mg capsule 15 mg PO QHS multivitamin [Daily Multi-Vitamin] Tablet 1 tab PO DAILY losartan 50 mg tablet 50 mg PO DAILY Patient Comments: TAKE ONE TABLET BY MOUTH EVERY DAY primidone 50 mg tablet 50 mg PO HS Patient Comments: TAKE ONE TABLET BY MOUTH AT BEDTIME rosuvastatin 5 mg tablet 5 mg PO DAILY fenofibrate nanocrystallized 145 mg tablet 145 mg PO DAILY fluticasone propionate 50 mcg/actuation spray,suspension 50 mcg intranasal DAILY Patient Comments: instill 1 SPRAY IN EACH NOSTRIL ONCE DAILY bisoprolol fumarate 10 mg tablet See Rx Instructions .ROUTE .COMPLEX Qty: 90 3RF Dose Instruction: TAKE 1 TABLET BY MOUTH EVERY DAY Rx Instructions: TAKE 1 TABLET BY MOUTH EVERY DAY aspirin 81 mg tablet,delayed release (DR/EC) 81 mg PO DAILY Referrals Follow up/Referrals: Josee Cheema MD [Primary Care Provider] - See instructions Instructions Patient Instructions: DI for Acute Abdominal Pain Print Language Print Language: Hebrew Discharge ED Provider: Anshul Chan General Adult HPI General Chief complaint: Abdominal Pain Stated complaint: abd pain Time Seen by Provider: 11/11/24 13:57 Mode of Arrival: Ambulatory Source of Information: Patient Description of Symptoms (Recalled from ER Triage Doc. by RN): Pt presents with c/o mid to left sided abdominal pain x 4days but it has progressively become worse. Pt states he feels bloated, and has not had a bowel movement in 4 days. History of Present Illness HPI narrative: Presents for evaluation of left lower quadrant abdominal pain. Patient reports he has had generalized abdominal discomfort that is now focally located in the left side of his abdomen. Additionally he reports he is able to tolerate oral intake and is passing flatus but has not had a bowel movement in 4 days. He denies any fever chills hemoptysis hematochezia melena nausea vomiting or diarrhea. Related Data Home Medications ?Medication ?Instructions ?Recorded ?Confirmed temazepam 15 mg capsule 15 mg PO QHS . 03/27/20 11/11/24 fenofibrate nanocrystallized 145 145 mg PO DAILY Cholesterol 05/08/21 11/11/24 mg tablet rosuvastatin 5 mg tablet 5 mg PO DAILY Cholesterol 05/08/21 11/11/24 aspirin 81 mg tablet,delayed 81 mg PO DAILY CAD 11/06/22 11/11/24 release fluticasone propionate 50 50 mcg intranasal DAILY 12/23/23 11/11/24 mcg/actuation nasal spray,suspension losartan 50 mg tablet 50 mg PO DAILY 06/23/24 11/11/24 multivitamin (Daily Multi-Vitamin 1 tab PO DAILY 06/23/24 11/11/24 tablet) primidone 50 mg tablet 50 mg PO HS 06/23/24 11/11/24 Previous Rx's ?Medication ?Instructions ?Recorded bisoprolol fumarate 10 mg tablet See Rx Instructions .Route 05/05/23 .COMPLEX #90 tabs Allergies Allergy/AdvReac Type Severity Reaction Status Date / Time No Known Allergies Allergy Verified 06/23/24 08:36 [facility] Disclaimer: The information contained in this section may have been updated after the patient was seen, as this information can be updated by other users. Medical History BOO on CPAP HLD (hyperlipidemia) Surgical History History of appendectomy Family History Other Cancer Family history of cancer Social History Smoking Status: Never smoker alcohol intake: current alcohol intake frequency: holidays/special occasions only substance use type: denies use current occupational status: retired Travel in the last 8 weeks: Inside the [place] household members: other housing: house caffeine: Yes Have you lived/traveled outside US in past 30 days?: No Contact w/someone who lives/traveled outside US past 30 days?: No Exposure to someone with infectious disease in past 14 days?: No Do you have a fever (greater than 100.4 F or 38 C)?: No Have you tested positive for COVID-19: No Exposed to someone with COVID-19 in past 14 days?: No Do you have a sore throat?: No Do you have a cough?: No Do you have any weakness?: No Do you have any diarrhea?: No Are you experiencing any unusual bleeding?: No Do you have any muscle aches/pain?: No Do you have any abdominal pain?: Yes Are you experiencing loss of taste or smell?: No Other Medical History Have you received the Flu Vaccine for this season: No (refused) Have you received the Pneumonia Vaccine: Yes ROS Obtained: Yes Systems reviewed as appropriate & no additional complaints except as documented Physical Exam General General appearance: alert and in no apparent distress Respiratory Respiratory exam: Present normal lung sounds bilaterally Cardiovascular Cardiovascular exam: Present regular rate Neurological Exam Neurological exam: Present alert and oriented X3 Medical Decision Making Medical Records Medical records reviewed: Yes I reviewed the patient's medical records. Screening: Per USPSTF and CDC recommendations, given the prevalence of disease in our region, it is our hospital?s policy to screen for HIV and viral Hepatitis for all patients aged 18 and over and those with ongoing risk factors. Robert Inquiry Pt receiving controlled substance: No Vital Signs: 11/11/24 13:44 11/11/24 14:32 11/11/24 15:01 Temperature 98.3 F Temperature Source Oral Pulse Rate 65 60 Pulse Rate [Right] 70 Respiratory Rate 18 Blood Pressure 148/81 H 168/85 H Blood Pressure [Right Arm] 130/78 Blood Pressure Mean [Right Arm] 95 Blood Pressure Source [Right Arm] Automatic Cuff Blood Pressure Position [Right Arm] Sitting 02 Sat by Pulse Oximetry 95 98 96 Oxygen Delivery Method Room Air Room Air Room Air 11/11/24 15:30 11/11/24 16:00 11/11/24 16:30 Temperature Temperature Source Pulse Rate 60 60 60 Pulse Rate [Right] Respiratory Rate Blood Pressure 169/93 H 173/89 H 171/95 H Blood Pressure [Right Arm] Blood Pressure Mean [Right Arm] Blood Pressure Source [Right Arm] Blood Pressure Position [Right Arm] 02 Sat by Pulse Oximetry 97 95 97 Oxygen Delivery Method Room Air Room Air Room Air 11/11/24 17:00 Temperature Temperature Source Pulse Rate 60 Pulse Rate [Right] Respiratory Rate Blood Pressure 184/99 H Blood Pressure [Right Arm] Blood Pressure Mean [Right Arm] Blood Pressure Source [Right Arm] Blood Pressure Position [Right Arm] 02 Sat by Pulse Oximetry 98 Oxygen Delivery Method Room Air Lab Data Lab results reviewed: Yes I reviewed the patient's lab results. Lab Results 11/11/24 13:55: Urine Color Yellow, Urine Appearance Clear, Urine pH 6.0, Ur Specific [place] 1.015, Urine Protein Negative, Urine Glucose (UA) Negative, Urine Ketones Negative, Urine Blood Negative, Urine Nitrate Negative, Urine Bilirubin Negative, Urine Urobilinogen 1.0, Ur Leukocyte Esterase Trace, Urine RBC Occasional, Urine WBC 3-5, Ur Squamous Epith Cells Occasional, SARS-CoV-2 (PCR) Not detected, Influenza A Untype (PCR) Not detected, Influenza Type B (PCR) Not detected 11/11/24 14:05: WBC 7.3, RBC 4.21 L, Hgb 13.5 L, Hct 39.6 L, MCV 94.1 H, MCH 32.1 H, MCHC 34.1, RDW 12.8, Plt Count 295, MPV 9.8, Neut % (Auto) 75.0, Lymph % (Auto) 13.1, [place] % (Auto) 6.8, Eos % (Auto) 4.5, Baso % (Auto) 0.5, Neut # (Auto) 5.5, Lymph # (Auto) 1.0, [place] # (Auto) 0.5, Eos # (Auto) 0.3, Baso # (Auto) 0.0, Sodium 139, Potassium 3.5, Chloride 108 H, Carbon Dioxide 26, Anion Gap 8.5, BUN 18, Creatinine 1.30 H, Estimated Creat Clear 85, Estimated GFR 54 L , Est GFR ( Amer) 66, Glucose 133 H, Calcium 10.8 H, Magnesium 1.8, Total Bilirubin 0.6, AST 40, ALT 25, Alkaline Phosphatase 41, Total Protein 6.9, Albumin 4.1, Globulin 2.8, Albumin/Globulin Ratio 1.5 11/11/24 14:05 11/11/24 14:05 Orders (Tests/Meds): ED MEDICATIONS Discontinued Medications Generic Name Dose Route Start Last Admin Trade Name Freq PRN Reason Stop Dose Admin Acetaminophen 1,000 mg 11/11/24 14:02 11/11/24 14:24 Acetaminophen 1,000mg/100ml Vial IV 11/11/24 14:03 1,000 mg ONCE ONE Administration Ceftriaxone Sodium 1 gm/ 50 mls @ 100 mls/hr 11/11/24 17:15 11/11/24 17:27 Sodium Chloride IV 11/11/24 17:44 100 mls/hr ONCE ONE Administration Iopamidol 75 ml 11/11/24 14:47 11/11/24 14:51 Iopamidol-370 (76%);100ml Bottle IV 11/11/24 14:48 75 ml ONCE ONE Administration Ketorolac Tromethamine 15 mg 11/11/24 14:02 11/11/24 14:24 Ketorolac 30mg/Ml Vial IV 11/11/24 14:03 15 mg ONCE ONE Administration Sodium Chloride 10 ml 11/11/24 14:47 11/11/24 14:51 Sodium Chloride 0.9% 10ml Syr (Rad Only) IV 11/11/24 14:48 10 ml ONCE ONE Administration ORDERS Category Date Time Status CT abdomen pelvis w con Stat Cat Scan 11/11/24 14:01 Taken CBC w/Auto Diff [Complete Blood Count Auto Diff] Stat Lab 11/11/24 14:05 Completed CMP [Comprehensive Metabolic Panel] Stat Lab 11/11/24 14:05 Completed Magnesium Stat Lab 11/11/24 14:05 Completed Rapid PCR Covid and Flu A/B Stat Lab 11/11/24 13:55 Completed Urinalysis and Microscopic Stat Lab 11/11/24 13:55 Completed Medical Decision Narrative: In summary patient is a 69-year-old male who presents to the emergency department for evaluation of left lower quadrant abdominal pain no bowel movement for 4 days. Patient is hemodynamically stable upon arrival, febrile. Exam is actually remarkable for mild tenderness to palpation in the left lower quadrant without rebound or guarding or rigidity. Bowel sounds normal active.. Differential diagnosis includes kidney stone versus diverticulitis versus gastroenteritis versus obstruction etc. Initial workup will be conducted with hematologic labs urinalysis CT scan abdomen pelvis. Initial interventions include fluid bolus Toradol Tylenol. Initial workup reviewed by me shows that his hematologic labs are nonactionable his creatinine is 1.3 but he has chronic kidney disease apparently BUN is 18 and GFR is 54 urinalysis is bland COVID and flu are negative however my informal interpretation of his CT scan shows that patient has an obstructing stone in the right ureter and a more distal UVJ stone also with bilateral hydronephrosis stranding around the kidney. He has an enlarged prostate however there is an irregular contour of the bladder wall in the same area as the stone in the UVJ that could be edema but is worrisome for neoplasm. Patient is still able to urinate however given the bilateral obstructing stones have started the patient on Rocephin. Upon repeat evaluation patient had complete resolution of his pain after initial intervention. Given this I have reached out to the [facility] transfer center and had an indirect discussion with Dr. Lujan of urology regarding patient's [place] and findings and about patient management, he has accepted the patient to likely to go to the [facility]. I then had an interactive discussion with Rasheeda Gimenez [facility] outpatient management and he has been accepted to [facility] for further evaluation and care. Critical Care Critical Care Time Critical Care Time: Yes Attestation: On 11/11/24, the high probability of a clinically significant, sudden or life threatening deterioration of the following system(s) required my full and direct attention, intervention and personal management. The time I documented below is in addition to time spent performing reported procedures but includes the following listed in this critical care notation. Total Time Total Critical Care Time: 35
[2024-11-11 14:16] LABS: Basophils % 0.5 % (0.1-2.0); Eosinophils # 0.3 K/mm3 (0.0-0.4); Eosinophils % 4.5 % (0.1-12.0); Hematocrit 39.6 % (42.0-52.0); Hemoglobin 13.5 g/dL (14.1-18.0); Lymphocytes % 13.1 % (10-50); Mean Corpuscular HGB Conc 34.1 g/dL (31.8-35.4); Mean Corpuscular Hemoglobin 32.1 pg (27.0-31.2); Mean Corpuscular Volume 94.1 fl (80-94); Mean Platelet Volume 9.8 fl (7.4-10.4); Monocytes # 0.5 K/mm3 (0.1-1.0); Monocytes % 6.8 % (1.7-9.3); Neutrophils # 5.5 K/mm3 (1.8-7.8); Platelet Count 295 K/mm3 (142-424); Red Blood Count 4.21 M/mm3 (4.60-6.20); Red Cell Distribution Width 12.8 % (11.5-17.5); White Blood Count 7.3 K/mm3 (4.8-10.8)
[2024-11-11 14:17] LABS: Appearance,Urine CLEAR (Clear); Bilirubin,Urine Negative (Negative); Blood, Urine Negative (Negative); Color,Urine YELLOW (Yellow); Glucose,Urine (UA) Negative (Negative); Ketones,Urine Negative (Negative); Leukocyte Esterase,Urine TRACE (Negative); Nitrate,Urine Negative (Negative); Protein,Urine Negative (Negative); Specific Gravity, Urine 1.015 (1.005-1.030)
[2024-11-11] MEDS: KETOROLAC 30MG/ML VIAL 15 MG IV (14:24)
[2024-11-11] MEDS: ACETAMINOPHEN 1,000MG/100ML VIAL 1000 MG IV (14:24)
[2024-11-11 14:30] LABS: Albumin Level 4.1 g/dl (3.5-5.0); Chloride 108 mmol/L (98-107); Potassium 3.5 mmoL/L (3.5-5.1); Sodium 139 mmol/L (136-145)
[2024-11-11 14:30] LABS: RBC,Urine Occasional #/hpf (0-3); Squamous Epithelial Cell,Urine Occasional #/hpf (0-5)
[2024-11-11 14:33] LABS: Alanine Aminotransferase 25 U/L (12-78); Albumin/Globulin Ratio 1.5 (1.1-1.8); Alkaline Phosphatase 41 U/L (38-126); Anion Gap 8.5 mEq/L (5-15); Aspartate Amino Transferase 40 U/L (17-59); Bilirubin,Total 0.6 mg/dl (0.2-1.3); Blood Urea Nitrogen 18 mg/dl (9-20); Calcium 10.8 mg/dl (8.4-10.2); Carbon Dioxide 26 mmol/L (22.0-30.0); Creatinine Clearance Estimated 85 mL/min (50-200); Estimated Glomerular Filt Rate 54 ml/min (>60); GFR (African American) 66 ML/MIN (>60); Globulin 2.8 g/dL (1.3-3.2); Glucose 133 mg/dl (74-100); Magnesium 1.8 mg/dl (1.6-2.3); Total Protein,Serum 6.9 g/dl (6.3-8.2)
[2024-11-11] MEDS: IOPAMIDOL-370 (76%);100ML BOTTLE 75 ML IV (14:51)
[2024-11-11] MEDS: SODIUM CHLORIDE 0.9% 10ML SYR (RAD ONLY) 10 ML IV (14:51)
[2024-11-11] MEDS: CEFTRIAXONE 1 GM 1 GM in 0.9 % SODIUM CHLORIDE 50 ML IV (17:27)
--- NOTE | 2024-11-11 17:28 | PC.NURSE ---
does not want blood cultures @ this time
--- NOTE | 2024-11-11 18:36 | PC.NURSE ---
Report called Janelle MACHADO at [facility]
== END 2024-11-11 18:45 | disposition short-term general hospital (02) ==
PROVIDERS: Physician Assistant; Student in an Organized Health Care Education/Training Program; Emergency Provider Emergency Medicine; PCP Family Medicine
DX: R10.9 Unspecified abdominal pain (principal)
CPT/HCPCS: 74177; 80053; 81001; 83735; 85025; 87636; 96365; 96375; 99285; J0131; J0696; J1885; Q9967

== ENCOUNTER 2025-06-02 10:47 | Day surgery (SDC) | payer MEDICARE, SELFPAY ==
[2025-05-31 14:42] VITALS: BMI 33.3
--- NOTE | 2025-06-01 20:35 | EXP.HP ---
History of Present Illness *Admission Date: 06/02/25 *History of present illness: Mr. Zuniga is a 70-year-old gentleman with a personal history of colon polyps. He has had colonoscopy in 2004, 2009 and 2016. His last colonoscopy in May 2017 revealed polyps and colonoscopy recommended at 5 years from that time. The examination is deemed medically necessary for screening/surveillance colonoscopy. The patient has been seen, interviewed and examined prior to the procedure by both myself and the anesthesia provider. [facility] Disclaimer: The information contained in this section may have been updated after the patient was seen, as this information can be updated by other users. Medical History (Updated 06/02/25 @ 11:12 by Mami Gillette RN) Pacemaker Pre-op evaluation BOO on CPAP HLD (hyperlipidemia) Surgical History History of appendectomy Family History Other Cancer Family history of cancer Social History (Updated 06/02/25 @ 11:12 by Mami Gillette RN) Smoking Status: Never smoker alcohol intake: current alcohol intake frequency: holidays/special occasions only substance use type: denies use current occupational status: retired Travel in the last 8 weeks?: None household members: other housing: house caffeine: No Have you lived/traveled outside US in past 30 days?: No Contact w/someone who lives/traveled outside US past 30 days?: No Exposure to someone with infectious disease in past 14 days?: No Do you have a fever (greater than 100.4 F or 38 C)?: No Have you tested positive for COVID-19?: No Exposed to someone with COVID-19 in past 14 days?: No Do you have a sore throat?: No Do you have a cough?: No Do you have any weakness?: No Are you experiencing any nausea/vomitting?: No Do you have any diarrhea?: No Are you experiencing any unusual bleeding?: No Do you have any muscle aches/pain?: No Do you have any abdominal pain?: No Are you experiencing loss of taste or smell?: No Other Medical History Have you received the Flu Vaccine for this season: No (refused) Have you received the Pneumonia Vaccine: Yes Review of Systems Review of Systems Review of systems (narrative): Negative *Cardiovascular Comments: Negative *Gastrointestinal Comments: Negative *Genitourinary Comments: Negative *Musculoskeletal Comments: Negative *Neurologic Comments: Negative Meds Home Medications and Allergies Home Medications ?Medication ?Instructions ?Recorded ?Confirmed ?Type temazepam 15 mg capsule 15 mg PO QHS . 03/27/20 06/02/25 History fenofibrate nanocrystallized 145 145 mg PO DAILY Cholesterol 05/08/21 06/02/25 History mg tablet rosuvastatin 5 mg tablet 5 mg PO DAILY Cholesterol 05/08/21 06/02/25 History aspirin 81 mg tablet,delayed 81 mg PO DAILY CAD 11/06/22 06/02/25 History release bisoprolol fumarate 10 mg tablet See Rx Instructions .Route 05/05/23 06/02/25 Rx .COMPLEX #90 tabs fluticasone propionate 50 50 mcg intranasal DAILY 12/23/23 06/02/25 History mcg/actuation nasal spray,suspension losartan 50 mg tablet 50 mg PO DAILY 06/23/24 06/02/25 History multivitamin (Daily Multi-Vitamin 1 tab PO DAILY 06/23/24 06/02/25 History tablet) primidone 50 mg tablet 50 mg PO HS 06/23/24 06/02/25 History coenzyme Q10 200 mg capsule 200 mg PO DAILY 05/17/25 06/02/25 History sodium,potassium,mag sulfates 17.5 See Rx Instructions PO .COMPLEX 05/19/25 06/02/25 Rx gram-3.13 gram-1.6 gram oral soln #354 mL (Suprep Bowel Prep Kit) minocycline 100 mg capsule 100 mg PO BID 05/31/25 06/02/25 History New Prescriptions to Start Prescriptions: Allergies Allergy/AdvReac Type Severity Reaction Status Date / Time No Known Allergies Allergy Verified 06/02/25 11:01 Exam Data for Last 24 hours I & O for Last 24 hours: Intake & Output 05/29/25 05/30/25 05/31/25 06/01/25 23:59 23:59 23:59 23:59 Weight 260 lb *Routine HEENT Exam Head: Present normocephalic Eye: Present EOMI and PERRL ENT: Present mucous membranes moist *Routine Neck Exam Neck: Present supple *Routine Respiratory Exam Respiratory: Present CTA bilaterally *Routine Cardiovascular Exam Cardiovascular: Present RRR *Routine Abdominal Exam Abdominal: Present soft and normoactive bowel sounds; Absent tenderness *Routine Rectal Exam Rectal:: deferred *Routine Genitalia Exam Genitalia:: deferred *Routine Extremities Exam Extremities: Absent cyanosis, clubbing or edema *Routine Skin Exam Skin: Present warm; Absent rash *Routine Neurological Exam Neurological: Present alert and oriented X3 Assessment and Plan *Assessment and plan (1) Personal history of colon polyps, unspecified: Status: Acute Category: Medical Code(s): Z86.0100 - Personal history of colon polyps, unspecified Plan A/P: 1. Personal history of colon polyps (unspecified) is the preprocedural diagnosis. The patient will be anesthetized/sedated using MAC sedation. The patient has been seen and examined. Cardiac and lung assessment prior to the examination is stable. Proceed with planned screening/surveillance colonoscopy.
--- NOTE | 2025-06-02 07:13 | P.PCN_ITS ---
[facility] Procedure Note Date: 06/02/25 Time: 12:15 Procedure Note:: Colonoscopy Procedure Report: Colonoscopy with cold snare polypectomy Endoscopist: Benny Villa II, MD Referring physician: Jay Cheema MD Date of Procedure: June 02, 2025 Equipment: Olympus [id number] adult colonoscope Sedation: MAC sedation Indication: Mr. Zuniga is a 70-year-old gentleman with a personal history of colon polyps. The patient reports no abdominal pain, weight loss, change in his bowel habits or rectal bleeding. He does state that his brother had cancer but does not think this was colon cancer. He has had colonoscopy in 2004, 2009 and 2016. His last colonoscopy in May 2017 revealed polyps and colonoscopy recommended at 5 years from that time. The examination is deemed medically necessary for screening/surveillance colonoscopy. Procedure: Prior to the procedure, a history and physical exam was performed, and patient's medications and allergies were reviewed. The risks, benefits and alternatives of the sedation and procedure were discussed with the patient. All questions were answered and informed consent was obtained. The patient was brought to the procedure room. Patient identification and proposed procedure were verified by the physician and the nurse. The patient was placed in a left lateral decubitus position and the scope was passed under direct vision. Throughout the procedure, the patient's blood pressure, pulse, and oxygen saturations were mo nitored continuously. The colonoscopy was accomplished without difficulty. The patient tolerated the procedure well. Findings: On digital rectal examination there was normal rectal tone. There were no external hemorrhoids. The prostate was 2+, smooth, soft, symmetric without nodules. The colonoscope was introduced through the anal canal to the rectum and advanced to the cecum. The ileocecal valve and appendiceal orifice were identified. The scope was advanced a short distance into the ileum which appeared grossly normal. The scope was then withdrawn into the colon. There were 2 polyps (transverse x 2 (4 and 4 mm)) which were both removed via cold snare polypectomy. The remaining cecum, ascending and transverse colon and mucosa were grossly normal. There were scattered diverticuli throughout the descending and sigmoid colon (LEFT colon). The rectum itself was normal. Upon retroflexion within the rectum there were grade 2 internal hemorrhoids. The preparation was excellent throughout with [place] Preparation Score of 9. The cecal time was 12 minutes. Impression: 1. Diminutive colonic polyps x 2 2. Left-sided diverticulosis 3. Grade 2 internal hemorrhoids Plan: I will follow-up the polyp histology and we will discuss whether further surveillance is warranted. I would encourage psyllium bulking fiber supplementation on a maintenance basis.
[2025-06-02 10:57] VITALS: BP 146/81; PULSE 63; RESP 18; TEMP 36.1; O2SAT 100
[2025-06-02] MEDS: LACTATED RINGERS 1000ML 1,000 ML 50 ML IV (11:14)
--- NOTE | 2025-06-02 11:21 | EXP.ANES.CKL ---
[facility] Disclaimer: The information contained in this section may have been updated after the patient was seen, as this information can be updated by other users. Medical History (Updated 06/02/25 @ 11:12 by Mami Gillette RN) Pacemaker Pre-op evaluation BOO on CPAP HLD (hyperlipidemia) Surgical History History of appendectomy Family History Other Cancer Family history of cancer Social History (Updated 06/02/25 @ 11:12 by Mami Gillette RN) Smoking Status: Never smoker alcohol intake: current alcohol intake frequency: holidays/special occasions only substance use type: denies use current occupational status: retired Travel in the last 8 weeks?: None household members: other housing: house caffeine: No Have you lived/traveled outside US in past 30 days?: No Contact w/someone who lives/traveled outside US past 30 days?: No Exposure to someone with infectious disease in past 14 days?: No Do you have a fever (greater than 100.4 F or 38 C)?: No Have you tested positive for COVID-19?: No Exposed to someone with COVID-19 in past 14 days?: No Do you have a sore throat?: No Do you have a cough?: No Do you have any weakness?: No Are you experiencing any nausea/vomitting?: No Do you have any diarrhea?: No Are you experiencing any unusual bleeding?: No Do you have any muscle aches/pain?: No Do you have any abdominal pain?: No Are you experiencing loss of taste or smell?: No [facility] Anesthesia Checklist Patient Identification Patient Identification: Arm Band and Verbal (Name & ) Structural Data Admitted From: Home Planned Operative Procedure/s: colonscopy Consent for Planned Operative Procedure(s) Verified: Yes Verified Documents: Surgical Consent and History and Physical NPO Status Verified Time NPO: 00:00 Additional verifications Anesthesia Reactions: No Hx Blood Transfusions: No Blood Transfusion Reaction: No Previous Colonoscopy: Yes Airway Assessment Mallampati Score:: Class III Dentition: Good Dentition Neurological Assessment Level of Consciousness: Awake, Alert and Appropriate Hx Seizures: No Anesthesia Plan Anesthesia Risk discussed: Yes Anesthesia Plan: Verified ASA Class: II Anesthesia Type: MAC
[2025-06-02 12:18] VITALS: BP 83/48; PULSE 60; RESP 18; TEMP 36.4; O2SAT 96
[2025-06-02 12:28] VITALS: BP 84/45; PULSE 64; RESP 18; O2SAT 95
[2025-06-02 12:38] VITALS: BP 101/50; PULSE 62; RESP 18; O2SAT 95
[2025-06-02 12:48] VITALS: BP 117/57; PULSE 64; RESP 18; O2SAT 96
== END 2025-06-02 12:55 | disposition home or self-care (01) ==
PROVIDERS: PCP Family Medicine; Visit Provider Internal Medicine Gastroenterology
PROC: 0DJD8ZZ Inspection of Lower Intestinal Tract, Via Natural or Artificial Opening Endoscopic (ICD-10-PCS; CPT 45378; principal; 2025-06-02 12:30)
DX: Z12.11 Encounter for screening for malignant neoplasm of colon (principal); D12.3 Benign neoplasm of transverse colon; K57.30 Diverticulosis of large intestine without perforation or abscess without bleeding; K64.1 Second degree hemorrhoids; E78.5 Hyperlipidemia, unspecified; Z86.0100 Personal history of colon polyps, unspecified; Z79.82 Long term (current) use of aspirin
CPT/HCPCS: 45385; J2003; J2704; J7120